=== PATIENT | male | born 2000 | race Caucasian/White ===

== ENCOUNTER 2021-09-28 20:08 | Outpatient (CLI) | payer SELFPAY | END 2021-09-28 20:09 | disposition critical access hospital (66) | LOC: EMS 20:08 | DX: R06.00 Dyspnea, unspecified (principal); R42 Dizziness and giddiness; R20.0 Anesthesia of skin; T62.0X1A Toxic effect of ingested mushrooms, accidental (unintentional), initial encounter | CPT/HCPCS: A0425; A0429 ==